=== PATIENT | male | born 1940 | race Caucasian/White ===

== ENCOUNTER 2017-05-26 07:57 | Day surgery (SDC) | payer OTHER ==
[2017-05-26] MEDS ORDERED: ASPIRIN EC 325 MG TAB PO ONE ×2 (08:04→08:21)
[2017-05-26] MEDS ORDERED: FAMOTIDINE 20 MG TAB PO ONE (08:04)
[2017-05-26] MEDS ORDERED: DIAZEPAM 5 MG TAB PO ONE (08:04)
[2017-05-26] MEDS ORDERED: NS 1,000 ML IV ONE (08:04)
[2017-05-26] MEDS ORDERED: diphenhydrAMINE 25 MG CAP PO ONE ×2 (08:04→08:20)
[2017-05-26] MEDS ORDERED: FAMOTIDINE 20 MG TAB ONE (08:21)
[2017-05-26] MEDS ORDERED: DIAZEPAM 5 MG TAB ONE (08:21)
--- NOTE | 2017-05-26 08:23 | CPEKG ---
Heart Rate: 85 RR Interval: 706 P-R Interval: 186 QRSD Interval: 150 QT Interval: 476 QTC Interval: 567 P [place]: 0 QRS [place]: -78 T Wave [place]: 68 EKG Severity - ABNORMAL ECG - EKG Impression: A-V DUAL-PACED RHYTHM WITH SOME INHIBITION Electronically Signed By: Arnol Silva 26-May-2017 15:48:46
[2017-05-26 08:51] LABS: % IMMATURE GRANULYOCYTES 0.4 % (0.0-1.1); ABSOLUTE IMMATURE GRANULOCYTES 0.04 10^3/uL (0.00-0.10); ADD DIFF? NO; ADD MORPH? NO; ADD SCAN? NO; ATYPICAL LYMPHOCYTE FLAG 0 (0-99); FRAGMENT RBC FLAG 0 (0-99); HEMATOCRIT 45.3 % (40.0-51.0); HEMOGLOBIN 15.5 g/dL (13.7-17.5); LEFT SHIFT FLG 0 (0-99); LIPEMIA HEMOLYSIS FLAG 90 (0-99); MEAN CELL HEMOGLOBIN 31.4 pg (27.9-34.1); MEAN CELL HEMOGLOBIN CONCENTR. 34.2 g/dL (32.4-36.7); MEAN CELL VOLUME 91.9 fL (81.5-99.8); MEAN PLATELET VOLUME 10.2 fL (8.7-11.7); PLATELET CLUMPS FLAG 0 (0-99); PLATELET COUNT 218 10^3/uL (150-400); RED BLOOD CELL COUNT 4.93 10^6/uL (4.40-6.38)
[2017-05-26 09:15] LABS: ANION GAP 14 mEq/L (8-16); CALCIUM 9.4 mg/dL (8.5-10.4); CARBON DIOXIDE 22 mEq/l (22-31); CHLORIDE 105 mEq/L (97-110); CHOLESTEROL 94 mg/dL (140-220); CHOLESTEROL/HDL RATIO 2.85 RATIO (1.00-4.97); GLOMERULAR FILTRATION RATE > 60; GLUCOSE 114 mg/dL (70-100); HIGH DENSITY LIPOPROTEIN 33 mg/dL (40-65); LDL/HDL RATIO 1.33 RATIO (1.00-3.64); LOW DENSITY LIPOPROTEIN 44 mg/dL (80-100); MAGNESIUM 2.1 mg/dL (1.6-2.3); NON-HIGH DENSITY LIPOPROTEIN 61 mg/dL (90-129); POTASSIUM 3.9 mEq/L (3.5-5.2); SODIUM 141 mEq/L (134-144); TRIGLYCERIDE 88 mg/dL (40-150); VERY LOW DENSITY LIPOPROTEINS 17 mg/dL (8-25)
[2017-05-26] MEDS ORDERED: LIDOCAINE 1% 300 MG/30 ML SDV ONE (09:25)
[2017-05-26] MEDS ORDERED: IOPAMIDOL (ISOVUE-370) 150 ML BTL IV ONE (09:25)
[2017-05-26] MEDS ORDERED: MIDAZOLAM 2 MG/2 ML VIAL ONE (09:25)
[2017-05-26] MEDS ORDERED: fentaNYL 100 MCG/2 ML INJ ONE (09:25)
[2017-05-26] MEDS ORDERED: VERAPAMIL 5 MG/2 ML VIAL ONE (09:51)
[2017-05-26] MEDS ORDERED: HEPARIN 10,000 UNIT/10 ML MDV ONE (09:51)
--- NOTE | 2017-05-26 10:11 | PDHPUP ---
History & Physical Update H&P update statement: This history and physical update is based on an assessment of the patient which was completed after admission or registration (within 24 hours), but prior to the surgery/procedure. H&P update: H&P reviewed & patient examined, no change in patient's condition since H&P completed H&P changes: Systemic hypertension.
--- NOTE | 2017-05-26 10:12 | PDPROPOC ---
Sedation Plan of Care Sedation Plan of Care: vital signs stable, mental status noted, patient educated of risks, benefits, alternatives, patient can tolerate sedation ASA Classification: ASA 2 Planned drugs: fentanyl, midazolam Mallampati Score: Class 1 Mallampati Reference Image: Patient passed 3-3-2 rule?: Yes
[2017-05-26] MEDS ORDERED: ATROPINE SULFATE 1 MG/10 ML SYR IVP PRN (10:41)
--- NOTE | 2017-05-26 10:45 | PDDXCAT ---
Diagnostic Cath Note - . Date: 05/26/17 Events Specialist: Shahid Indication: CCC Class III and IV angina on medical treatment - Procedure Access: left wrist Procedure: left heart catheterization, coronary angiography, left ventriculogram , ANDERSON injection - Materials Left Heart Cath size: 5F Left Heart Cath materials: standard multipack (JL4, JR4, pigtail), other (IM-C) - Findings-Left Heart Catheterization LM: Unobstructed LAD: 100% occluded LCX: Unobstructed RCA: Site of prior stenting widely patent without new stenosis. ANDERSON: Widely patent to the LAD. EDP: 15 mm of mercury LVEF: 70 Wall motion: Normal Complications: None Estimated blood loss: <50ml Closure method: TR Band Assessment: Shortness of breath of uncertain etiology. Patent site of prior stenting within the right coronary artery. Patent mammary artery to the LAD. Normal LV systolic function with normal filling pressures Plan: Continue aggressive secondary prevention with close clinical follow-up. Broad differential diagnosis for shortness of breath. Clinical follow-up in 10 days. Patient Problems: Problems Problem Status Onset Shortness of breath Acute Atrial fibrillation Acute CAD - Coronary arteriosclerosis Acute
[2017-05-26 12:24] LABS: INR 1.19 (0.83-1.16); PROTIME(PATIENT) 15.1 SEC (12.0-15.0)
== END 2017-05-26 14:50 | disposition home or self-care (01) ==
LOC: FCATH 07:57
PROVIDERS: ATTEND Internal Medicine Interventional Cardiology
PROC: B2151ZZ Fluoroscopy of Left Heart using Low Osmolar Contrast (ICD-10-PCS; principal; 2017-05-26)
PROC: 4A023N7 Measurement of Cardiac Sampling and Pressure, Left Heart, Percutaneous Approach (ICD-10-PCS; principal; 2017-05-26)
PROC: B2181ZZ Fluoroscopy of Left Internal Mammary Bypass Graft using Low Osmolar Contrast (ICD-10-PCS; principal; 2017-05-26)
PROC: B2111ZZ Fluoroscopy of Multiple Coronary Arteries using Low Osmolar Contrast (ICD-10-PCS; principal; 2017-05-26)
DX: I25.119 Atherosclerotic heart disease of native coronary artery with unspecified angina pectoris (principal); I25.82 Chronic total occlusion of coronary artery; I48.91 Unspecified atrial fibrillation; I10 Essential (primary) hypertension; E78.5 Hyperlipidemia, unspecified; Z95.0 Presence of cardiac pacemaker; Z95.1 Presence of aortocoronary bypass graft; Z95.5 Presence of coronary angioplasty implant and graft; Z85.46 Personal history of malignant neoplasm of prostate
CPT/HCPCS: 93005; 93459; C1769; J1644; J2250; J3010; Q9967

== ENCOUNTER → 2018-03-30 | Outpatient (CLI) | payer OTHER | LOC: BHFA 09:15 | PROVIDERS: ATTEND Internal Medicine Interventional Cardiology | DX: I48.91 Unspecified atrial fibrillation (principal); I25.10 Atherosclerotic heart disease of native coronary artery without angina pectoris; I10 Essential (primary) hypertension ==

== ENCOUNTER 2018-04-17 10:01 | Day surgery (SDC) | payer OTHER ==
[2018-04-17] MEDS ORDERED: MIDAZOLAM 2 MG/2 ML VIAL IVP ONE (10:07)
[2018-04-17] MEDS ORDERED: NS 500 ML IV ONE (10:07)
[2018-04-17] MEDS ORDERED: fentaNYL 100 MCG/2 ML INJ IVP ONE (10:07)
[2018-04-17] MEDS ORDERED: BENZOCAINE UNIT DOSE SPRAY HURRICAINE MM ONE (10:07)
[2018-04-17] MEDS ORDERED: ATROPINE SULFATE 1 MG/10 ML SYR IVP ONE (10:07)
[2018-04-17] MEDS ORDERED: APIXABAN 5 MG TAB PO ONE (10:45)
[2018-04-17 10:53] LABS: INR 1.53 (0.83-1.16); PROTIME(PATIENT) 18.5 SEC (12.0-15.0)
--- NOTE | 2018-04-17 11:23 | CPEKG ---
Test Reason : OPEN Blood Pressure : / mmHG Vent. Rate : 060 BPM Atrial Rate : 208 BPM P-R Int : 097 ms QRS Dur : 155 ms QT Int : 534 ms P-R-T Axes : 000 -82 079 degrees QTc Int : 534 ms Ventricular-paced rhythm Confirmed by Newton Austin ([id number]) on 04/17/2018 11:23:27 AM Referred By: Confirmed By:Newton Austin
--- NOTE | 2018-04-17 12:01 | PDANEPAE ---
ANE History of Present Illness A-fib ANE Past Medical History - Cardiovascular History Hx Arrhythmias: Yes Cardiovascular History Comment: Pacer - Pulmonary History Hx Oxygen in Use at Home: No Hx Sleep Apnea: No - Chronic Pain History Chronic Pain: No ANE Review of Systems Review of Systems: ANE Patient History - Allergies Allergies/Adverse Reactions: amoxicillin Allergy (Verified 06/14/16 06:27) - Home Medications Home medications: home medication list seen and reviewed Home Medications: Apixaban [Eliquis] 5 mg PO BID 06/14/16 [Last Taken 04/17/18 11:07] Montelukast Sodium [Singulair 10 mg (*)] 10 mg PO DAILY 06/14/16 [Last Taken 16:00] Simvastatin [Zocor] 40 mg PO DAILY 06/14/16 [Last Taken 04/16/18 20:00] celeCOXIB [Celebrex (*)] 200 mg PO DAILY 06/14/16 [Last Taken 04/16/18 08:00] Ascorbic Acid [Vitamin C 500 mg (*)] 500 mg PO DAILY 05/21/17 [Last Taken 08:00] Aspirin [Aspirin 81mg (*)] 81 mg PO DAILY 05/21/17 [Last Taken 04/16/18 08:00] Cholecalciferol Vit D3 [Vitamin D3 (*)] 1,000 units PO DAILY 05/21/17 [Last Taken 04/16/18 08:00] Cyanocobalamin [Vitamin B12 (*)] 1,000 mcg PO DAILY 05/21/17 [Last Taken 08:00] Herbals/Supplements -Info Only 100 mg PO DAILY 05/21/17 [Last Taken 04/16/18 08: 00] Losartan Potassium [Cozaar 50 mg (*)] 100 mg PO DAILY 05/21/17 [Last Taken 04/17 08:00] Magnesium Oxide [Magnesium Oxide 400 mg (*)] 200 mg PO DAILY 05/21/17 [Last Taken 04/16/18 08:00] Multivitamins [Multivitamin (*)] 1 each PO DAILY 05/21/17 [Last Taken 04/16/18 08:00] Nitroglycerin [Nitrostat 0.4 mg (*)] 0.4 mg SL Q5M PRN 05/21/17 [Last Taken Unknown] Sotalol HCl [Betapace 80 MG (*)] 160 mg PO BID 05/21/17 [Last Taken 04/17/18 08: 00] Escitalopram Oxalate 10 mg PO DAILY 04/17/18 [Last Taken 04/16/18 16:00] Valtrex 1 g PO 04/17/18 [Last Taken Unknown] - NPO status NPO Status: no food or drink >8 hours - Anes Hx Anes Hx: no prior problems - Smoking Hx Smoking Status: Never smoked ANE Labs/Vital Signs - Labs Result Diagrams: 04/17/18 10:40 - Vital Signs Height: 193 cm Weight: 97.5 kg ANE Physical Exam - Airway Neck exam: FROM Mallampati Score: Class 2 Mouth exam: normal dental/mouth exam - Pulmonary Pulmonary: no respiratory distress - Cardiovascular Cardiovascular: regular rate and rhythym - ASA Status ASA Status: III ANE Anesthesia Plan Anesthesia Plan: GA with mask (IV GA)
--- NOTE | 2018-04-17 12:05 | PDHPUP ---
History & Physical Update H&P update statement: This history and physical update is based on an assessment of the patient which was completed after admission or registration (within 24 hours), but prior to the surgery/procedure. H&P update: H&P reviewed & patient examined, no change in patient's condition since H&P completed
[2018-04-17] MEDS ORDERED: LIDOCAINE 2% 2 ML INJ ONE (12:07)
[2018-04-17] MEDS ORDERED: PROPOFOL 200 MG/20 ML VIAL ONE ×2 (12:07)
[2018-04-17] MEDS ORDERED: AMIODARONE HCL 100 ML IV ONE (12:19)
--- NOTE | 2018-04-17 12:21 | PDTEE1 ---
VERONICA Cardioversion Procedure Procedure: electrical cardioversion, transesophageal echo Indications: atrial fibrillation Consent: signed and in chart Anticoagulation: eliquis Procedural Details: Pads were placed in anterior-posterior position. VERONICA probe was advanced and standard images obtained. There is no evidence of left atrial or left atrial appendage thrombus. Synchronized cardioversion attempt #1: 200J Results: normal sinus rhythm (load amiodarone for rhythm managment.) Patient Problems: Problems Problem Status Onset Shortness of breath Acute Atrial fibrillation Acute CAD - Coronary arteriosclerosis Acute
--- NOTE | 2018-04-17 12:28 | POSTANESTH ---
Post Anesthetic Evaluation Cardiovascular Status: Similar to Pre-Op Cond Respiratory Status: Similar to Pre-op Cond. Level of Consciousness/Mental Status: Alert and Oriented Pain Control: Adequate, Prn Tx Ordered Nausea/Vomiting Control: Adequate, Prn Tx Ordered Complications Possibly Related to Anesthesia: None Noted
--- NOTE | 2018-04-20 10:39 | CPEKG ---
Test Reason : OPEN Blood Pressure : / mmHG Vent. Rate : 067 BPM Atrial Rate : 064 BPM P-R Int : 191 ms QRS Dur : 375 ms QT Int : 558 ms P-R-T Axes : 124 -32 -22 degrees QTc Int : 589 ms A-V dual-paced rhythm with some inhibition AV pacing is new in comparison to prior (V pacing only) Confirmed by Newton Austin ([id number]) on 04/20/2018 10:38:50 AM Referred By: Confirmed By:Newton Austin
== END 2018-04-17 13:39 | disposition home or self-care (01) ==
LOC: FCATH 10:01
PROVIDERS: ATTEND Internal Medicine Interventional Cardiology
PROC: 5A2204Z Restoration of Cardiac Rhythm, Single (ICD-10-PCS; principal; 2018-04-17)
DX: I48.91 Unspecified atrial fibrillation (principal); I25.10 Atherosclerotic heart disease of native coronary artery without angina pectoris; Z79.01 Long term (current) use of anticoagulants; Z95.0 Presence of cardiac pacemaker
CPT/HCPCS: J0461; J2704

== ENCOUNTER → 2018-05-29 | Outpatient (CLI) | payer OTHER | LOC: BHFA 13:15 | PROVIDERS: ATTEND Internal Medicine Interventional Cardiology | DX: I20.8 Other forms of angina pectoris (principal); I48.91 Unspecified atrial fibrillation; I25.10 Atherosclerotic heart disease of native coronary artery without angina pectoris; Z95.0 Presence of cardiac pacemaker ==

== ENCOUNTER → 2018-08-03 | Outpatient (CLI) | payer OTHER | LOC: FIMAGING 09:56 | PROVIDERS: ATTEND Internal Medicine Interventional Cardiology | DX: Z79.899 Other long term (current) drug therapy (principal); I48.91 Unspecified atrial fibrillation ==

== ENCOUNTER 2018-09-01 08:09 | Day surgery (SDC) | payer OTHER | END 2018-09-01 12:01 | disposition home or self-care (01) | LOC: FCATH 08:09 ==